=== PATIENT | female | born 1990 | race Caucasian/White ===

== ENCOUNTER → 2023-11-03 | Emergency (ER) | payer BC ==
[~2023-11-03] VITALS: Ht 162.6 cm; Wt 66.0 kg
[~2023-11-03] MED LIST: AMOX1TAB16 MT; OFLO5DRO4 EACH EAR
[2023-11-03 11:04] VITALS: BP 126/70; TEMP 98.5; O2SAT 100
[2023-11-03 11:32] VITALS: PULSE 89; RESP 18
== END ==
LOC: ER 10:58
DX: H66.93 Otitis media, unspecified, bilateral (principal)
CPT/HCPCS: 99283

== ENCOUNTER 2024-08-13 19:32 | Emergency (ER) | payer BC ==
[~2024-08-13] VITALS: Ht 160 cm; Wt 64.0 kg
[2024-08-13 19:48] VITALS: O2SAT 99
[2024-08-13] MEDS ORDERED: METH-653 MT (21:17)
[2024-08-13] MEDS ORDERED: IBUP-2029 MT (21:17)
[2024-08-13 21:47] VITALS: BP 126/62; PULSE 72; RESP 16; TEMP 36.8; O2SAT 100
== END 2024-08-13 21:50 | disposition home or self-care (01) ==
LOC: ER 19:32
DX: S33.5XXA Sprain of ligaments of lumbar spine, initial encounter (principal); V43.52XA Car driver injured in collision with other type car in traffic accident, initial encounter; Y93.89 Activity, other specified; Y92.410 Unspecified street and highway as the place of occurrence of the external cause; Y99.8 Other external cause status
CPT/HCPCS: 99283

== ENCOUNTER 2024-11-13 16:15 | Emergency (ER) | payer BC ==
[~2024-11-13] VITALS: Ht 160 cm; Wt 67.0 kg
[~2024-11-13 16:15] MED LIST changes: +IBUP-2029 MT; +METH-653 MT
[2024-11-13 16:20] VITALS: O2SAT 98
[2024-11-13 16:26] VITALS: BP 112/64; PULSE 68; RESP 16; TEMP 37.1; O2SAT 99
[2024-11-13] MEDS: KETOROLAC 15MG/ML VIAL IM ONE (18:21)
[2024-11-13] MEDS: ACETAMINOPHEN 325MG TABLET PO ONE (18:22)
[2024-11-13 18:23] LABS: HCG SCREEN NEGATIVE
[2024-11-13] MEDS ORDERED: IBUP-2029 MT (18:29)
== END 2024-11-13 19:40 | disposition home or self-care (01) ==
LOC: ER 16:15
DX: G43.909 Migraine, unspecified, not intractable, without status migrainosus (principal); Z98.890 Other specified postprocedural states
CPT/HCPCS: 99283; 84703; 96372; J1885